=== PATIENT | female | born 1980 | race Caucasian/White ===

== ENCOUNTER 2022-08-03 19:44 | Emergency (ER) | payer OTHER ==
[2022-08-03 19:51] VITALS: BP_SYST 175
--- NOTE | 2022-08-03 20:55 | NUR ---
Patient left without being seen. ER DR. CASILLAS AWARE.
== END 2022-08-03 20:55 | disposition left against medical advice (07) ==
LOC: SED 19:44
DX: R10.11 Right upper quadrant pain (principal); R07.9 Chest pain, unspecified; Z53.21 Procedure and treatment not carried out due to patient leaving prior to being seen by health care provider
CPT/HCPCS: 99281